=== PATIENT | male | born 1975 | race Caucasian/White ===

== ENCOUNTER 2022-02-26 19:08 | Emergency (ER) | payer MEDICARE ==
[2022-02-26 21:10] VITALS: BP 109/52
== END 2022-02-27 00:05 ==
LOC: EDH 19:08
DX: F84.0 Autistic disorder (principal); E16.2 Hypoglycemia, unspecified; G91.9 Hydrocephalus, unspecified; Z88.8 Allergy status to other drugs, medicaments and biological substances
CPT/HCPCS: 82948

== ENCOUNTER 2022-04-18 08:57 | Day surgery (SDC) | payer MEDICARE ==
[~2022-04-18] VITALS: Ht 177.8 cm; Wt 51.3 kg
[~2022-04-18 08:57] MED LIST: MIRT-92 PO; MULT-1367 PEG; OLAN7.5T18 PO; VALB40CA2 PEG
[2022-04-18 11:47] LABS: BASOPHILS % (AUTO) 0.5 % (0.0-5.0); EOSINOPHILS % (AUTO) 0.7 % (0.0-8.0); HEMATOCRIT 37.9 % (42-54); LYMPHOCYTES % (AUTO) 31.4 % (21.0-51.0); MEAN CORPUSCULAR HEMOGLOBIN 24.9 pg (27.0-33.0); MEAN CORPUSCULAR HGB CONC 32.2 g/dL (32.0-36.0); MEAN CORPUSCULAR VOLUME 77.5 fL (79-99); MONOCYTES % (AUTO) 9.7 % (3.0-13.0); NEUTROPHILS % (AUTO) 57.2 % (40.0-77.0); PLATELET COUNT (AUTO) 161 K/uL (130-400); RED BLOOD CELL COUNT(AUTO) 4.89 MIL/uL (4.50-6.20); RED CELL DISTRIBUTION WIDTH 15.7 % (11.0-15.5); WHITE BLOOD COUNT (AUTO) 4.1 K/uL (4.8-10.8)
[2022-04-18] MEDS ORDERED: 0.9%NACL 1000ML 1,000 ML IV ONE (11:57)
[2022-04-18 12:06] LABS: INR 1.45 (0.85-1.15); PROTHROMBIN TIME 15.5 SEC (9.6-11.6)
[2022-04-18 12:07] LABS: PARTIAL THROMBOPLASTIN TIME 35.8 SEC (26.3-35.5)
[2022-04-18 12:41] VITALS: BP 91/64
[2022-04-18] MEDS ORDERED: MOM30 PO (12:46)
[2022-04-18] MEDS ORDERED: PROPOFOL 10 MG/ML 20ML VIAL IV ONE (14:16)
[2022-04-18] MEDS ORDERED: LIDOCAINE PF 100MG/5ML (2%) SYRINGE 5ML ONE (14:18)
== END 2022-04-18 15:10 | disposition home or self-care (01) ==
LOC: DAH 08:57
PROVIDERS: ATTEND Internal Medicine
DX: K94.23 Gastrostomy malfunction (principal); Z20.822 Contact with and (suspected) exposure to COVID-19; R13.12 Dysphagia, oropharyngeal phase; F25.9 Schizoaffective disorder, unspecified; I10 Essential (primary) hypertension; Z79.01 Long term (current) use of anticoagulants; Z79.899 Other long term (current) drug therapy; Z98.890 Other specified postprocedural states
CPT/HCPCS: 43246; 85025; 85610; 85730; 87426; 36415; J7030 ×2; J2001; J2704; A4620; A4215 ×2; A4223; A4657; A7002; A4222; A4221; A4663; A4606

== ENCOUNTER 2022-09-15 11:02 | Emergency (ER) | payer MEDICARE ==
[~2022-09-15] VITALS: Ht 172.7 cm; Wt 50.8 kg
[~2022-09-15 11:02] MED LIST changes: +MOM30 PO
[2022-09-15 15:44] VITALS: BP 114/62
== END 2022-09-15 15:46 | disposition home or self-care (01) ==
LOC: EDH 11:02
DX: T42.6X1A Poisoning by other antiepileptic and sedative-hypnotic drugs, accidental (unintentional), initial encounter (principal); F84.0 Autistic disorder; F20.9 Schizophrenia, unspecified; Z59.7 Insufficient social insurance and welfare support; Y92.89 Other specified places as the place of occurrence of the external cause
CPT/HCPCS: 99281